=== PATIENT | female | born 1960 | race African-American/Black ===

== ENCOUNTER 2016-11-27 07:58 | Inpatient (IN) | payer MEDICARE, MEDICAID ==
[~2016-11-27] VITALS: Ht 167.6 cm; Wt 86.4 kg
[2016-11-27] MEDS ORDERED: LORA0.5T2 PO (08:05)
[2016-11-27] MEDS ORDERED: MEMA10TA2 PO (08:05)
[2016-11-27] MEDS ORDERED: CLON0.1T PO (08:05)
[2016-11-27] MEDS ORDERED: HYDR-4133 PO (08:05)
[2016-11-27] MEDS ORDERED: ATOR10TA69 PO (08:05)
[2016-11-27 08:49] LABS: BASOPHILS % 0.2 % (0.0-2.0); EOSINOPHILS % 1.3 % (0.0-5.0); HEMATOCRIT. 37.3 % (36.0-48.0); LYMPHOCYTES % 7.7 % (20.0-50.0); MEAN CORPUSCULAR HEMOGLOBIN 31.9 pg (28.0-32.0); MEAN CORPUSCULAR VOLUME 99.2 fL (81.0-99.0); MEAN PLATELET VOLUME 8.7 fl (7.4-10.4); MONOCYTES % 5.5 % (2.0-8.0); NEUTROPHILS % 85.3 % (40.0-76.0); PLATELET 267 x1000/uL (130-400); RED BLOOD CELL COUNT 3.76 mill/uL (4.2-5.4); RED CELL DISTRIBUTION WIDTH 13.9 % (11.6-14.6)
[2016-11-27] MEDS ORDERED: VANCOMYCIN 1 G PREMIX 200 ML IV ONE (09:00)
[2016-11-27] MEDS ORDERED: PIPERACILLIN/TAZ 3.375G PREMIX 50 ML IV ONE (09:00)
[2016-11-27 09:06] LABS: CARBON DIOXIDE 28 mEq/L (21-32); CHLORIDE 96 mEq/L (98-107); TROPONIN I 0.04 ng/mL (0.00-0.04)
[2016-11-27 10:00] LABS: GLUCOSE URINE NEGATIVE (NEGATIVE); KETONES URINE TRACE (NEGATIVE); LEUKOCYTE ESTERASE URINE 3+ (NEGATIVE); NITRITE URINE POSITIVE (NEGATIVE); OCCULT BLOOD URINE 3+ (NEGATIVE); PH URINE 7.5 (4.5-8.0); PROTEIN URINE 3+ (NEGATIVE)
[2016-11-27 10:01] LABS: CLARITY URINE TURBID (CLEAR); COLOR URINE BROWN (YELLOW)
[2016-11-27 12:30] VITALS: BP 180/67
[2016-11-27 12:40] VITALS: BP 180/67
[2016-11-27] MEDS ORDERED: ACETAMINOPHEN 325MG TABLET PO PRN (13:15)
[2016-11-27] MEDS ORDERED: ONDANSETRON HCL 4MG/2ML VIAL IV PRN (13:15)
[2016-11-27] MEDS ORDERED: ENOXAPARIN 40MG/0.4ML SYR SUBCUT SCH (14:00)
[2016-11-27] MEDS ORDERED: DEXTROSE 50% WATER 50ML SYRINGE IV PRN (15:45)
[2016-11-27] MEDS: PIPERACILLIN/TAZ 2.25G PREMIX 50 ML IV SCH ×2 (15:47→21:44)
[2016-11-27 16:00] VITALS: BP 199/86
[2016-11-27] MEDS ORDERED: VANCOMYCIN 1 G PREMIX 200 ML IV SCH (16:00)
[2016-11-27] MEDS ORDERED: VANCOMYCIN 750 MG PREMIX 150 ML IV SCH (16:00)
[2016-11-27] MEDS ORDERED: DEXTROSE 5% WATER 1,000 ML IV SCH (17:15)
[2016-11-27] MEDS: INSULIN LISPRO 100 UNITS/ML SUBCUT SCH ×2 (17:44→21:00)
[2016-11-27] MEDS: BLOOD SUGAR DIAGNOSTIC STRIP TEST SCH ×2 (17:44→21:46)
[2016-11-27] MEDS: HYDRALAZINE HCL 50MG TABLET GT SCH (18:08)
[2016-11-27 19:19] LABS: CLARITY URINE TURBID (CLEAR); COLOR URINE ORANGE (YELLOW); GLUCOSE URINE NEGATIVE (NEGATIVE); KETONES URINE NEGATIVE (NEGATIVE); LEUKOCYTE ESTERASE URINE 3+ (NEGATIVE); NITRITE URINE NEGATIVE (NEGATIVE); OCCULT BLOOD URINE NEGATIVE (NEGATIVE); PH URINE 8.5 (4.5-8.0); PROTEIN URINE 2+ (NEGATIVE); SPECIFIC GRAVITY URINE 1.019 (1.005-1.030); UROBILINOGEN URINE 0.2 E.U./dL (0.2-1.0)
[2016-11-27 20:00] VITALS: BP 179/79
[2016-11-27] MEDS: HYDRALAZINE 20MG/ML VIAL IV PRN (20:03)
[2016-11-28] VITALS (8 sets, daily range): BP systolic 114–174; BP diastolic 59–73
[2016-11-28] MEDS: HYDRALAZINE HCL 50MG TABLET GT SCH ×4 (00:13→17:32)
[2016-11-28] MEDS: PIPERACILLIN/TAZ 2.25G PREMIX 50 ML IV SCH ×3 (05:20→21:12)
[2016-11-28] MEDS: BLOOD SUGAR DIAGNOSTIC STRIP TEST SCH ×4 (05:24→21:15)
[2016-11-28 06:54] LABS: BASOPHILS % 0.4 % (0.0-2.0); EOSINOPHILS % 5.6 % (0.0-5.0); HEMATOCRIT. 35.1 % (36.0-48.0); HEMOGLOBIN. 11.5 g/dL (12.0-16.0); MEAN CORPUSCULAR HEMOGLOBIN 32.4 pg (28.0-32.0); MEAN CORPUSCULAR VOLUME 98.8 fL (81.0-99.0); MEAN PLATELET VOLUME 9.6 fl (7.4-10.4); MONOCYTES % 6.8 % (2.0-8.0); NEUTROPHILS % 76.2 % (40.0-76.0); PLATELET 240 x1000/uL (130-400); RED BLOOD CELL COUNT 3.56 mill/uL (4.2-5.4); RED CELL DISTRIBUTION WIDTH 14.1 % (11.6-14.6)
[2016-11-28] MEDS: INSULIN LISPRO 100 UNITS/ML SUBCUT SCH ×4 (08:10→21:00)
[2016-11-28 08:33] LABS: CARBON DIOXIDE 29 mEq/L (21-32); CHLORIDE 94 mEq/L (98-107); HDL CHOLESTEROL 60 mg/dL (40-59); LDL CHOLESTEROL 33 mg/dL (5-100)
[2016-11-28 10:11] LABS: T4 FREE 1.33 ng/dL (0.76-1.46)
[2016-11-28] MEDS: ENOXAPARIN 40MG/0.4ML SYR SUBCUT SCH (10:28)
[2016-11-28 10:46] LABS: FOLIC ACID (FOLATE) SERUM > 20.00 ng/mL (>5.38); VITAMIN B12 SERUM > 2000.0 pg/mL (211-911)
[2016-11-28 10:50] LABS: AMMONIA 21 uMol/L (<32)
[2016-11-28] MEDS: HYDRALAZINE 20MG/ML VIAL IV PRN ×2 (13:06→17:19)
[2016-11-29] VITALS (8 sets, daily range): BP systolic 135–187; BP diastolic 47–73
[2016-11-29] MEDS: HYDRALAZINE HCL 50MG TABLET GT SCH ×4 (01:03→17:29)
[2016-11-29] MEDS: PIPERACILLIN/TAZ 2.25G PREMIX 50 ML IV SCH ×2 (06:00→13:33)
[2016-11-29] MEDS: BLOOD SUGAR DIAGNOSTIC STRIP TEST SCH ×4 (06:04→21:00)
[2016-11-29 08:04] LABS: BASOPHILS % 0.4 % (0.0-2.0); EOSINOPHILS % 5.5 % (0.0-5.0); HEMATOCRIT. 32.3 % (36.0-48.0); HEMOGLOBIN. 10.5 g/dL (12.0-16.0); LYMPHOCYTES % 13.6 % (20.0-50.0); MEAN CORPUSCULAR HEMOGLOBIN 32.4 pg (28.0-32.0); MEAN CORPUSCULAR VOLUME 99.9 fL (81.0-99.0); MEAN PLATELET VOLUME 9.3 fl (7.4-10.4); MONOCYTES % 11.1 % (2.0-8.0); NEUTROPHILS % 69.4 % (40.0-76.0); PLATELET 185 x1000/uL (130-400); RED BLOOD CELL COUNT 3.24 mill/uL (4.2-5.4); RED CELL DISTRIBUTION WIDTH 14.3 % (11.6-14.6)
[2016-11-29] MEDS: INSULIN LISPRO 100 UNITS/ML SUBCUT SCH ×4 (08:09→21:00)
[2016-11-29] MEDS: ENOXAPARIN 40MG/0.4ML SYR SUBCUT SCH (08:33)
[2016-11-29] MEDS ORDERED: POTASSIUM CHLORIDE 20MEQ TABLET SR PO SCH (10:15)
[2016-11-29] MEDS ORDERED: POTASSIUM CHLORIDE 20MEQ/PACKET PO NR (11:15)
[2016-11-29] MEDS: HYDRALAZINE 20MG/ML VIAL IV PRN (17:29)
[2016-11-29] MEDS: CEFTAZIDIME PENTAHYDRATE 1 G in DEXTROSE 5% WATER 50 ML IV SCH (17:45)
[2016-11-30] VITALS: BP 186/63
[2016-11-30] MEDS: HYDRALAZINE HCL 50MG TABLET GT SCH ×4 (00:52→17:33)
[2016-11-30 04:00] VITALS: BP 140/56
[2016-11-30] MEDS: BLOOD SUGAR DIAGNOSTIC STRIP TEST SCH ×4 (06:22→20:32)
[2016-11-30] MEDS: INSULIN LISPRO 100 UNITS/ML SUBCUT SCH ×4 (06:26→20:32)
[2016-11-30 06:45] LABS: BASOPHILS % 0.5 % (0.0-2.0); EOSINOPHILS % 6.1 % (0.0-5.0); HEMATOCRIT. 32.2 % (36.0-48.0); HEMOGLOBIN. 10.4 g/dL (12.0-16.0); LYMPHOCYTES % 15.9 % (20.0-50.0); MEAN CORPUSCULAR HEMOGLOBIN 32.4 pg (28.0-32.0); MEAN CORPUSCULAR VOLUME 100.5 fL (81.0-99.0); MEAN PLATELET VOLUME 9.5 fl (7.4-10.4); MONOCYTES % 10.8 % (2.0-8.0); NEUTROPHILS % 66.7 % (40.0-76.0); PLATELET 185 x1000/uL (130-400); RED BLOOD CELL COUNT 3.21 mill/uL (4.2-5.4); RED CELL DISTRIBUTION WIDTH 14.2 % (11.6-14.6)
[2016-11-30 08:00] VITALS: BP 174/64
[2016-11-30] MEDS: ENOXAPARIN 40MG/0.4ML SYR SUBCUT SCH (09:36)
[2016-11-30 12:00] VITALS: BP 135/75
[2016-11-30] MEDS: CEFTAZIDIME PENTAHYDRATE 1 G in DEXTROSE 5% WATER 50 ML IV SCH (15:36)
[2016-11-30 16:00] VITALS: BP 182/71
[2016-11-30 20:00] VITALS: BP 197/78
[2016-12-01] VITALS (8 sets, daily range): BP systolic 155–200; BP diastolic 77–88
[2016-12-01] MEDS: HYDRALAZINE HCL 50MG TABLET GT SCH ×5 (00:06→23:57)
[2016-12-01] MEDS: HYDRALAZINE 20MG/ML VIAL IV PRN ×3 (00:10→17:52)
[2016-12-01] MEDS: BLOOD SUGAR DIAGNOSTIC STRIP TEST SCH ×4 (06:42→21:00)
[2016-12-01] MEDS: MORPHINE SULFATE 2 MG/ML CPJ (NOT FOR IM USE) IV PRN (06:58)
[2016-12-01 07:37] LABS: BASOPHILS % 0.6 % (0.0-2.0); EOSINOPHILS % 6.5 % (0.0-5.0); HEMATOCRIT. 36.5 % (36.0-48.0); HEMOGLOBIN. 11.9 g/dL (12.0-16.0); MEAN CORPUSCULAR HEMOGLOBIN 32.5 pg (28.0-32.0); MEAN CORPUSCULAR VOLUME 100.2 fL (81.0-99.0); MEAN PLATELET VOLUME 10.3 fl (7.4-10.4); MONOCYTES % 9.8 % (2.0-8.0); NEUTROPHILS % 69.1 % (40.0-76.0); PLATELET 221 x1000/uL (130-400); RED BLOOD CELL COUNT 3.65 mill/uL (4.2-5.4); RED CELL DISTRIBUTION WIDTH 14.2 % (11.6-14.6)
[2016-12-01] MEDS: INSULIN LISPRO 100 UNITS/ML SUBCUT SCH ×4 (08:10→21:00)
[2016-12-01] MEDS: ENOXAPARIN 40MG/0.4ML SYR SUBCUT SCH (08:41)
[2016-12-01] MEDS ORDERED: POTASSIUM CHLORIDE 20MEQ TABLET SR PO NR (10:30)
[2016-12-01] MEDS ORDERED: POTASSIUM CHLORIDE 20MEQ/PACKET PO SCH (13:15)
[2016-12-01] MEDS: HYDRALAZINE HCL 25MG TABLET PO SCH ×2 (13:20→21:13)
[2016-12-01] MEDS: CEFTAZIDIME PENTAHYDRATE 1 G in DEXTROSE 5% WATER 50 ML IV SCH (17:52)
[2016-12-02 00:21] VITALS: BP 144/66
[2016-12-02 04:00] VITALS: BP 141/70
[2016-12-02] MEDS: HYDRALAZINE HCL 25MG TABLET PO SCH ×3 (05:35→21:36)
[2016-12-02] MEDS: HYDRALAZINE HCL 50MG TABLET GT SCH ×3 (05:35→18:32)
[2016-12-02 07:36] LABS: BASOPHILS % 0.7 % (0.0-2.0); EOSINOPHILS % 9.1 % (0.0-5.0); HEMATOCRIT. 36.3 % (36.0-48.0); HEMOGLOBIN. 11.6 g/dL (12.0-16.0); LYMPHOCYTES % 22.4 % (20.0-50.0); MEAN CORPUSCULAR VOLUME 100.3 fL (81.0-99.0); MEAN PLATELET VOLUME 10.2 fl (7.4-10.4); MONOCYTES % 11.4 % (2.0-8.0); NEUTROPHILS % 56.4 % (40.0-76.0); PLATELET 217 x1000/uL (130-400); RED BLOOD CELL COUNT 3.61 mill/uL (4.2-5.4); RED CELL DISTRIBUTION WIDTH 14.1 % (11.6-14.6)
[2016-12-02] MEDS: BLOOD SUGAR DIAGNOSTIC STRIP TEST SCH ×4 (07:40→21:00)
[2016-12-02 08:00] VITALS: BP 157/63
[2016-12-02] MEDS: INSULIN LISPRO 100 UNITS/ML SUBCUT SCH ×4 (08:10→21:00)
[2016-12-02] MEDS: ENOXAPARIN 40MG/0.4ML SYR SUBCUT SCH (08:58)
[2016-12-02] MEDS: MORPHINE SULFATE 2 MG/ML CPJ (NOT FOR IM USE) IV PRN (09:37)
[2016-12-02 12:00] VITALS: BP 180/79
[2016-12-02] MEDS: METOPROLOL TARTRATE 25MG TABLET PO SCH ×2 (12:53→21:36)
[2016-12-02] MEDS ORDERED: ENOXAPARIN 30MG/0.3ML SYR SUBCUT SCH (14:59)
[2016-12-02] MEDS: CEFTAZIDIME PENTAHYDRATE 1 G in DEXTROSE 5% WATER 50 ML IV SCH (15:14)
[2016-12-02 16:00] VITALS: BP 175/75
[2016-12-02 20:24] VITALS: BP 199/79
[2016-12-03] VITALS (7 sets, daily range): BP systolic 103–201; BP diastolic 45–77
[2016-12-03] MEDS: HYDRALAZINE HCL 50MG TABLET GT SCH ×4 (00:09→17:08)
[2016-12-03] MEDS: BLOOD SUGAR DIAGNOSTIC STRIP TEST SCH ×3 (07:40→17:07)
[2016-12-03] MEDS: INSULIN LISPRO 100 UNITS/ML SUBCUT SCH ×2 (08:10→13:10)
[2016-12-03] MEDS ORDERED: ENOXAPARIN 30MG/0.3ML SYR SUBCUT SCH (09:00)
[2016-12-03] MEDS ORDERED: MORPHINE SULFATE 4 MG/ML CPJ (NOT FOR IM USE) IV PRN (09:30)
[2016-12-03] MEDS: METOPROLOL TARTRATE 25MG TABLET PO SCH (09:39)
[2016-12-03 10:05] LABS: EOSINOPHILS % 9.7 % (0.0-5.0); HEMATOCRIT. 34.8 % (36.0-48.0); HEMOGLOBIN. 11.1 g/dL (12.0-16.0); LYMPHOCYTES % 23.1 % (20.0-50.0); MEAN CORPUSCULAR HEMOGLOBIN 31.8 pg (28.0-32.0); MEAN CORPUSCULAR VOLUME 99.2 fL (81.0-99.0); MEAN PLATELET VOLUME 9.8 fl (7.4-10.4); MONOCYTES % 9.5 % (2.0-8.0); NEUTROPHILS % 56.7 % (40.0-76.0); PLATELET 207 x1000/uL (130-400); RED BLOOD CELL COUNT 3.51 mill/uL (4.2-5.4); RED CELL DISTRIBUTION WIDTH 13.9 % (11.6-14.6)
[2016-12-03] MEDS ORDERED: CLONIDINE 0.1MG TABLET PO PRN (11:30)
[2016-12-03] MEDS ORDERED: AMLODIPINE 2.5MG TABLET NG SCH (11:30)
[2016-12-03] MEDS ORDERED: CLONIDINE 0.2MG TABLET PO SCH (11:30)
[2016-12-03] MEDS ORDERED: AMIKACIN SULFATE 400 MG in SODIUM CHLORIDE 0.9% 100 ML IV SCH (18:00)
== END 2016-12-03 18:30 | DRG 91 ==
LOC: ER 08:16 → 7WST 10:22 → ENRESERV 11:44
PROVIDERS: ADMIT Internal Medicine Nephrology; ATTEND Internal Medicine Nephrology
PROC: 5A1D60Z (ICD-10-PCS; principal; 2016-11-27)
DX: G92 Toxic encephalopathy (principal); N18.6 End stage renal disease; I47.2 Ventricular tachycardia; I12.0 Hypertensive chronic kidney disease with stage 5 chronic kidney disease or end stage renal disease; F03.90 Unspecified dementia, unspecified severity, without behavioral disturbance, psychotic disturbance, mood disturbance, and anxiety; E11.22 Type 2 diabetes mellitus with diabetic chronic kidney disease; N39.0 Urinary tract infection, site not specified; I69.354 Hemiplegia and hemiparesis following cerebral infarction affecting left non-dominant side; R13.10 Dysphagia, unspecified; K21.9 Gastro-esophageal reflux disease without esophagitis; E78.5 Hyperlipidemia, unspecified; E78.00 Pure hypercholesterolemia, unspecified; E66.9 Obesity, unspecified; B96.20 Unspecified Escherichia coli [E. coli] as the cause of diseases classified elsewhere; D64.9 Anemia, unspecified; F41.9 Anxiety disorder, unspecified; Z88.8 Allergy status to other drugs, medicaments and biological substances; Z99.2 Dependence on renal dialysis; Z93.1 Gastrostomy status; Z89.512 Acquired absence of left leg below knee; Z79.899 Other long term (current) drug therapy; Z68.30 Body mass index [BMI] 30.0-30.9, adult; T50.905A Adverse effect of unspecified drugs, medicaments and biological substances, initial encounter; Y92.89 Other specified places as the place of occurrence of the external cause
CPT/HCPCS: 36415; 70450; 70551; 71010; 74000; 74176; 80048; 80053; 80061; 80202; 81001; 82140; 82607; 82746; 82962; 83036; 83605; 83690; 84132; 84439; 84443; 84481; 84484; 85025; 87040; 87077; 87086; 87186; 92610; 93005; 93306; 93880; 93970; 96365; 96375; 97163; 97167; 99285; A6261; C1893; J0278; J0360; J0713; J1650; J1815; J2270; J2543; J3370; J7030; J7050; J7060

== ENCOUNTER 2017-09-23 18:54 | Inpatient (IN) | payer MEDICARE, MEDICAID ==
[~2017-09-23] VITALS: Ht 154.9 cm; Wt 97.5 kg
[~2017-09-23 18:54] MED LIST: ATOR10TA69 PO; CLON0.1T PO; HYDR-4133 PO; LORA0.5T2 PO; MEMA10TA2 PO
[2017-09-23] MEDS ORDERED: ACETAMINOPHEN 650MG SUPP PR STA (21:01)
[2017-09-23] MEDS ORDERED: SODIUM CHLORIDE 0.9% 1,000 ML IV ONE (21:01)
[2017-09-23] MEDS ORDERED: VANCOMYCIN 1 G PREMIX 200 ML IV ONE (21:15)
[2017-09-23] MEDS ORDERED: PIPERACILLIN/TAZ 3.375G PREMIX 50 ML IV ONE (21:15)
[2017-09-23 21:42] LABS: HEMATOCRIT. 32.2 % (36.0-48.0); HEMOGLOBIN. 10.3 g/dL (12.0-16.0); MEAN CORPUSCULAR HEMOGLOBIN 32.3 pg (28.0-32.0); MEAN CORPUSCULAR VOLUME 100.8 fL (81.0-99.0); MEAN PLATELET VOLUME 8.7 fl (7.4-10.4); PLATELET 344 x1000/uL (130-400); RED CELL DISTRIBUTION WIDTH 15.9 % (11.6-14.6)
[2017-09-23 21:49] LABS: CHLORIDE 102 mEq/L (98-107)
[2017-09-23 21:53] LABS: PROTHROMBIN TIME 10.6 sec (9.4-11.6)
[2017-09-23 21:58] LABS: AMMONIA 22 uMol/L (<32); CREATINE KINASE 88 IU/L (26-192)
[2017-09-23 22:04] LABS: ATYPICAL LYMPHOCYTES 2; PLATELET ESTIMATE NORMAL
[2017-09-23 23:01] LABS: CLARITY URINE TURBID (CLEAR); COLOR URINE ORANGE (YELLOW); KETONES URINE TRACE (NEGATIVE); LEUKOCYTE ESTERASE URINE 3+ (NEGATIVE); NITRITE URINE NEGATIVE (NEGATIVE); OCCULT BLOOD URINE 2+ (NEGATIVE); PROTEIN URINE 4+ (NEGATIVE); SPECIFIC GRAVITY URINE 1.018 (1.005-1.030); UROBILINOGEN URINE 0.2 E.U./dL (0.2-1.0)
[2017-09-23] MEDS ORDERED: DOCUSATE SODIUM 100MG CAPSULE PO PRN (23:15)
[2017-09-23] MEDS ORDERED: CLONIDINE 0.1MG TABLET PO PRN (23:15)
[2017-09-23] MEDS ORDERED: ONDANSETRON HCL 4MG/2ML VIAL IV PRN (23:15)
[2017-09-23] MEDS ORDERED: ACETAMINOPHEN 650MG/20.3ML UDC GT PRN (23:15)
[2017-09-24] VITALS (12 sets, daily range): BP systolic 105–167; BP diastolic 51–82
[2017-09-24] MEDS ORDERED: DEXTROSE 50% WATER 50ML SYRINGE IV PRN (01:45)
[2017-09-24] MEDS: DEXT 5%/0.45% NACL 1000ML 1,000 ML IV SCH (02:36)
[2017-09-24] MEDS: BLOOD SUGAR DIAGNOSTIC STRIP TEST SCH ×4 (06:15→21:45)
[2017-09-24] MEDS: INSULIN LISPRO 100 UNITS/ML SUBCUT SCH ×4 (06:16→21:00)
[2017-09-24] MEDS: PIPERACILLIN/TAZOBACTAM 2.25 G in DEXTROSE 5% WATER 50 ML IV SCH ×2 (06:17→22:02)
[2017-09-24 06:27] LABS: HEMATOCRIT. 27.6 % (36.0-48.0); HEMOGLOBIN. 8.4 g/dL (12.0-16.0); MEAN CORPUSCULAR VOLUME 108.3 fL (81.0-99.0); MEAN PLATELET VOLUME 9.6 fl (7.4-10.4); PLATELET 256 x1000/uL (130-400); RED BLOOD CELL COUNT 2.55 mill/uL (4.2-5.4); RED CELL DISTRIBUTION WIDTH 16.9 % (11.6-14.6)
[2017-09-24 07:02] LABS: PHOSPHORUS 2.9 mg/dL (2.5-4.9)
[2017-09-24 09:05] LABS: HEMATOCRIT 32.2 % (36.0-48.0); HEMOGLOBIN 10.2 g/dL (12.0-16.0)
[2017-09-24] MEDS: HYDRALAZINE HCL 10MG TABLET PO SCH ×2 (09:29→22:11)
[2017-09-24] MEDS: MEMANTINE HCL 10MG TABLET PO SCH (09:29)
[2017-09-24 09:31] LABS: T4 FREE 0.86 ng/dL (0.76-1.46)
[2017-09-24 09:40] LABS: BG BASE EXCESS -4.8 mmol/L (-2.0-2.0); BG CARBOXYHEMOGLOBIN 1.4 % (0.5-1.5); BG DEOXYHEMOGLOBIN 0.7 % (0.0-5.0); BG HCO3 ACT 21.1 mmol/L (22.0-26.0); BG METHEMOGLOBIN 0.3 % (0.0-1.5); BG OXYGEN SATURATION 99.3 % (92.0-98.5); BG OXYHEMOGLOBIN 97.6 % (94.0-97.0); BG PCO2 42.1 mmHg (35.0-45.0); BG PH 7.317 (7.350-7.450); BG PO2 167.5 mmHg (75.0-100.0); BG SAMPLE SITE RIGHT RADIAL; BG TOTAL HEMOGLOBIN 10.7 g/dL (12.0-18.0); BG VENT MODE NASAL CANNULA
[2017-09-24 10:06] LABS: VITAMIN B12 SERUM 703 pg/mL (211-911)
[2017-09-24 10:08] LABS: FOLIC ACID (FOLATE) SERUM > 20.00 ng/mL (>5.38)
[2017-09-24] MEDS: OMEPRAZOLE 20MG CAPSULE EXTENDED RELEASE PO SCH (11:00)
[2017-09-24] MEDS ORDERED: LIDOCAINE HCL/PF 1% 2ML VIAL ONE (11:55)
[2017-09-24 12:08] LABS: PLATELET ESTIMATE NORMAL
[2017-09-24] MEDS ORDERED: VANCOMYCIN 1500MG in DEXTROSE 5% WATER 250ML IV NR (12:30)
[2017-09-24] MEDS: IPRATROPIUM/ALBUTEROL 0.5-3(2.5)MG/3ML NEB INH SCH (12:50)
[2017-09-24 19:20] LABS: AMMONIA 19 uMol/L (<32)
[2017-09-24] MEDS: ATORVASTATIN CALCIUM 10MG TABLET PO SCH (22:02)
[2017-09-25] VITALS (12 sets, daily range): BP systolic 105–183; BP diastolic 60–79
[2017-09-25] MEDS: IPRATROPIUM/ALBUTEROL 0.5-3(2.5)MG/3ML NEB INH SCH ×4 (01:39→20:34)
[2017-09-25] MEDS ORDERED: PIPERACILLIN/TAZOBACTAM 2.25 G in DEXTROSE 5% WATER 50 ML IV SCH (02:00)
[2017-09-25] MEDS: DEXT 5%/0.45% NACL 1000ML 1,000 ML IV SCH (02:20)
[2017-09-25 05:46] LABS: BASOPHILS % 0.4 % (0.0-2.0); EOSINOPHILS % 9.7 % (0.0-5.0); HEMATOCRIT. 29.2 % (36.0-48.0); HEMOGLOBIN. 9.4 g/dL (12.0-16.0); LYMPHOCYTES % 14.3 % (20.0-50.0); MEAN CORPUSCULAR HEMOGLOBIN 33.1 pg (28.0-32.0); MEAN CORPUSCULAR VOLUME 103.3 fL (81.0-99.0); MEAN PLATELET VOLUME 9.4 fl (7.4-10.4); MONOCYTES % 10.4 % (2.0-8.0); NEUTROPHILS % 65.2 % (40.0-76.0); PLATELET 256 x1000/uL (130-400); RED BLOOD CELL COUNT 2.83 mill/uL (4.2-5.4); RED CELL DISTRIBUTION WIDTH 16.3 % (11.6-14.6)
[2017-09-25] MEDS: BLOOD SUGAR DIAGNOSTIC STRIP TEST SCH ×4 (06:32→21:46)
[2017-09-25] MEDS: INSULIN LISPRO 100 UNITS/ML SUBCUT SCH ×4 (06:32→21:00)
[2017-09-25] MEDS: OMEPRAZOLE 20MG CAPSULE EXTENDED RELEASE PO SCH (06:37)
[2017-09-25] MEDS: MEMANTINE HCL 10MG TABLET PO SCH (08:58)
[2017-09-25] MEDS: HYDRALAZINE HCL 10MG TABLET PO SCH ×2 (08:59→22:18)
[2017-09-25] MEDS: PIPERACILLIN/TAZ 2.25G PREMIX 50 ML IV SCH (10:01)
[2017-09-25] MEDS ORDERED: MORPHINE SULFATE 4 MG/ML CPJ (NOT FOR IM USE) IV SCH (14:30)
[2017-09-25] MEDS ORDERED: MORPHINE SULFATE 10 MG/ML CPJ IM SCH (15:30)
[2017-09-25] MEDS: FOLIC ACID/VITAMIN B COMP W-C TABLET PO SCH (16:08)
[2017-09-25] MEDS: ZINC SULFATE 220 MG ( 50 ) CAPSULE PO SCH (16:08)
[2017-09-25] MEDS: ASCORBIC ACID 250 MG TABLET PO SCH (17:16)
[2017-09-25] MEDS: ATORVASTATIN CALCIUM 10MG TABLET PO SCH (22:17)
[2017-09-26] VITALS (11 sets, daily range): BP systolic 93–155; BP diastolic 53–81
[2017-09-26] MEDS: PIPERACILLIN/TAZ 2.25G PREMIX 50 ML IV SCH ×3 (02:00→17:35)
[2017-09-26] MEDS: IPRATROPIUM/ALBUTEROL 0.5-3(2.5)MG/3ML NEB INH SCH ×4 (02:13→21:45)
[2017-09-26 06:10] LABS: HEMATOCRIT. 32.1 % (36.0-48.0); HEMOGLOBIN. 10.3 g/dL (12.0-16.0); MEAN CORPUSCULAR HEMOGLOBIN 32.9 pg (28.0-32.0); MEAN CORPUSCULAR VOLUME 102.4 fL (81.0-99.0); MEAN PLATELET VOLUME 9.3 fl (7.4-10.4); PLATELET 305 x1000/uL (130-400); RED BLOOD CELL COUNT 3.13 mill/uL (4.2-5.4); RED CELL DISTRIBUTION WIDTH 16.1 % (11.6-14.6)
[2017-09-26] MEDS: BLOOD SUGAR DIAGNOSTIC STRIP TEST SCH ×4 (06:56→21:54)
[2017-09-26] MEDS: INSULIN LISPRO 100 UNITS/ML SUBCUT SCH ×4 (07:20→21:00)
[2017-09-26] MEDS: OMEPRAZOLE 20MG CAPSULE EXTENDED RELEASE PO SCH (07:32)
[2017-09-26] MEDS: HYDRALAZINE HCL 10MG TABLET PO SCH ×2 (09:00→21:58)
[2017-09-26] MEDS: FOLIC ACID/VITAMIN B COMP W-C TABLET PO SCH (10:18)
[2017-09-26] MEDS: MEMANTINE HCL 10MG TABLET PO SCH (10:18)
[2017-09-26] MEDS: ZINC SULFATE 220 MG ( 50 ) CAPSULE PO SCH (10:18)
[2017-09-26] MEDS: ASCORBIC ACID 250 MG TABLET PO SCH ×2 (10:18→17:35)
[2017-09-26 10:19] LABS: PLATELET ESTIMATE NORMAL
[2017-09-26] MEDS ORDERED: LIDOCAINE HCL/PF 1% 10 MG/ML 5ML VIAL ONE (12:49)
[2017-09-26] MEDS ORDERED: VANCOMYCIN 1,750 MG in DEXT 5% WATER 500 ML IV NR (15:00)
[2017-09-26] MEDS: MORPHINE SULFATE 4 MG/ML CPJ (NOT FOR IM USE) IV PRN ×2 (15:51→22:02)
[2017-09-26] MEDS: ATORVASTATIN CALCIUM 10MG TABLET PO SCH (21:58)
[2017-09-27] VITALS (12 sets, daily range): BP systolic 99–162; BP diastolic 50–92
[2017-09-27] MEDS: IPRATROPIUM/ALBUTEROL 0.5-3(2.5)MG/3ML NEB INH SCH ×3 (01:54→14:00)
[2017-09-27] MEDS: PIPERACILLIN/TAZ 2.25G PREMIX 50 ML IV SCH ×2 (02:36→09:27)
[2017-09-27] MEDS: MORPHINE SULFATE 4 MG/ML CPJ (NOT FOR IM USE) IV PRN ×3 (05:25→20:47)
[2017-09-27] MEDS: OMEPRAZOLE 20MG CAPSULE EXTENDED RELEASE PO SCH (05:58)
[2017-09-27] MEDS: BLOOD SUGAR DIAGNOSTIC STRIP TEST SCH ×3 (06:28→16:50)
[2017-09-27] MEDS: INSULIN LISPRO 100 UNITS/ML SUBCUT SCH ×3 (07:20→17:20)
[2017-09-27 07:23] LABS: BASOPHILS % 0.5 % (0.0-2.0); EOSINOPHILS % 10.2 % (0.0-5.0); HEMATOCRIT. 29.1 % (36.0-48.0); HEMOGLOBIN. 9.5 g/dL (12.0-16.0); LYMPHOCYTES % 15.3 % (20.0-50.0); MEAN CORPUSCULAR HEMOGLOBIN 32.8 pg (28.0-32.0); MEAN CORPUSCULAR VOLUME 100.9 fL (81.0-99.0); MEAN PLATELET VOLUME 9.4 fl (7.4-10.4); PLATELET 328 x1000/uL (130-400); RED BLOOD CELL COUNT 2.89 mill/uL (4.2-5.4); RED CELL DISTRIBUTION WIDTH 15.7 % (11.6-14.6)
[2017-09-27] MEDS: HYDRALAZINE HCL 10MG TABLET PO SCH (09:00)
[2017-09-27] MEDS: MEMANTINE HCL 10MG TABLET PO SCH (09:27)
[2017-09-27] MEDS: FOLIC ACID/VITAMIN B COMP W-C TABLET PO SCH (09:27)
[2017-09-27] MEDS: ZINC SULFATE 220 MG ( 50 ) CAPSULE PO SCH (09:27)
[2017-09-27] MEDS: ASCORBIC ACID 250 MG TABLET PO SCH ×2 (09:27→18:17)
[2017-09-27] MEDS ORDERED: FLUCONAZOLE 100MG TABLET PO SCH (14:15)
[2017-09-27] MEDS ORDERED: SULFAMETHOXAZOLE/TRIMETHOPRIM 400/80MG TAB PO SCH (16:00)
[2017-09-28] MEDS ORDERED: FAMOTIDINE 20MG TABLET PO SCH (09:00)
== END 2017-09-27 21:09 | DRG 853 ==
LOC: ER 19:05 → 3WST 23:23 → EDBEDREQ 23:39 → ENRESERV 23:42
PROVIDERS: ADMIT Internal Medicine Nephrology; ATTEND Internal Medicine Nephrology
PROC: 4A00X4Z Measurement of Central Nervous Electrical Activity, External Approach (ICD-10-PCS; 2017-09-23)
PROC: 5A1D70Z Performance of Urinary Filtration, Intermittent, Less than 6 Hours Per Day (ICD-10-PCS; 2017-09-24)
PROC: 0KBP0ZZ Excision of Left Hip Muscle, Open Approach (ICD-10-PCS; principal; 2017-09-26)
PROC: 0KBN0ZZ Excision of Right Hip Muscle, Open Approach (ICD-10-PCS; 2017-09-26)
PROC: 05HA33Z Insertion of Infusion Device into Left Brachial Vein, Percutaneous Approach (ICD-10-PCS; 2017-09-26)
PROC: B54NZZA Ultrasonography of Left Upper Extremity Veins, Guidance (ICD-10-PCS; 2017-09-26)
PROC: 5A1D70Z Performance of Urinary Filtration, Intermittent, Less than 6 Hours Per Day (ICD-10-PCS; 2017-09-26)
DX: A41.9 Sepsis, unspecified organism (principal); L89.154 Pressure ulcer of sacral region, stage 4; N18.6 End stage renal disease; G92 Toxic encephalopathy; N39.0 Urinary tract infection, site not specified; I13.11 Hypertensive heart and chronic kidney disease without heart failure, with stage 5 chronic kidney disease, or end stage renal disease; E46 Unspecified protein-calorie malnutrition; I69.354 Hemiplegia and hemiparesis following cerebral infarction affecting left non-dominant side; D63.8 Anemia in other chronic diseases classified elsewhere; F03.90 Unspecified dementia, unspecified severity, without behavioral disturbance, psychotic disturbance, mood disturbance, and anxiety; E11.22 Type 2 diabetes mellitus with diabetic chronic kidney disease; E11.51 Type 2 diabetes mellitus with diabetic peripheral angiopathy without gangrene; E78.00 Pure hypercholesterolemia, unspecified; E78.5 Hyperlipidemia, unspecified; Z87.891 Personal history of nicotine dependence; Z89.512 Acquired absence of left leg below knee; Z79.899 Other long term (current) drug therapy; Z99.2 Dependence on renal dialysis; Z88.8 Allergy status to other drugs, medicaments and biological substances
CPT/HCPCS: 36415; 36569; 36600; 70450; 70551; 71045; 76937; 80048; 80053; 80061; 80076; 80202; 81003; 82140; 82375; 82550; 82607; 82728; 82746; 82805; 82962; 83036; 83540; 83550; 83605; 83735; 83880; 84100; 84439; 84443; 84481; 84484; 85014; 85018; 85025; 85044; 85610; 87040; 87077; 87086; 87106; 87186; 93005; 93306; 93880; 94640; 96365; 96367; 99291; A6261; C1725; C1893; J2270; J2543; J3370; J3490; J7030; J7050; J7060; J7620

== ENCOUNTER 2017-09-29 09:46 | Inpatient (IN) | payer MEDICARE, MEDICAID ==
[~2017-09-29] VITALS: Ht 157.5 cm; Wt 82.6 kg
[2017-09-29 11:08] LABS: BASOPHILS % 0.7 % (0.0-2.0); EOSINOPHILS % 12.3 % (0.0-5.0); HEMATOCRIT. 32.2 % (36.0-48.0); HEMOGLOBIN. 10.4 g/dL (12.0-16.0); LYMPHOCYTES % 15.1 % (20.0-50.0); MEAN CORPUSCULAR HEMOGLOBIN 32.7 pg (28.0-32.0); MEAN CORPUSCULAR VOLUME 101.5 fL (81.0-99.0); MEAN PLATELET VOLUME 9.4 fl (7.4-10.4); NEUTROPHILS % 62.9 % (40.0-76.0); PLATELET 364 x1000/uL (130-400); RED BLOOD CELL COUNT 3.17 mill/uL (4.2-5.4); RED CELL DISTRIBUTION WIDTH 15.6 % (11.6-14.6)
[2017-09-29 11:14] LABS: CHLORIDE 101 mEq/L (98-107)
[2017-09-29 12:01] LABS: CLARITY URINE TURBID (CLEAR); COLOR URINE ORANGE (YELLOW); KETONES URINE NEGATIVE (NEGATIVE); LEUKOCYTE ESTERASE URINE 3+ (NEGATIVE); NITRITE URINE NEGATIVE (NEGATIVE); OCCULT BLOOD URINE 3+ (NEGATIVE); PROTEIN URINE 3+ (NEGATIVE); SPECIFIC GRAVITY URINE 1.019 (1.005-1.030); UROBILINOGEN URINE 0.2 E.U./dL (0.2-1.0)
[2017-09-29] MEDS ORDERED: LEVOFLOXACIN 500MG PREMIX 100 ML IV NR (15:45)
[2017-09-29] MEDS ORDERED: MEROPENEM 500 MG in SODIUM CHLORIDE 0.9% 50 ML IV ONE (17:00)
[2017-09-29] MEDS ORDERED: ACETAMINOPHEN 325MG TABLET PO PRN (17:15)
[2017-09-29] MEDS ORDERED: ONDANSETRON HCL 4MG/2ML VIAL IV PRN (17:15)
[2017-09-29] MEDS ORDERED: DOCUSATE SODIUM 100MG CAPSULE PO PRN (17:15)
[2017-09-29] MEDS ORDERED: CLONIDINE 0.1MG TABLET PO PRN (17:15)
[2017-09-29] MEDS ORDERED: AMIKACIN SULFATE 450 MG in SODIUM CHLORIDE 0.9% 100 ML IV SCH (17:45)
[2017-09-30] MEDS ORDERED: DEXTROSE 50% WATER 50ML SYRINGE IV PRN (02:15)
[2017-09-30 02:57] VITALS: BP 158/53
[2017-09-30 03:00] VITALS: BP 158/53
[2017-09-30] MEDS ORDERED: FOLI0.8T23 PO (03:30)
[2017-09-30] MEDS ORDERED: HYDR-4133 PO (03:32)
[2017-09-30] MEDS ORDERED: ASCO100T12 PO (03:44)
[2017-09-30] MEDS ORDERED: DOCU-138 PO (03:44)
[2017-09-30] MEDS ORDERED: ATOR10TA69 PO (03:44)
[2017-09-30] MEDS ORDERED: ZINC220T PO (03:44)
[2017-09-30] MEDS ORDERED: FAMO20TA8 PO (03:44)
[2017-09-30] MEDS ORDERED: FLUC100T42 PO (03:44)
[2017-09-30] MEDS ORDERED: OMEP20CA10 PO (03:44)
[2017-09-30] MEDS ORDERED: SULF1TAB47 PO (03:44)
[2017-09-30] MEDS: BLOOD SUGAR DIAGNOSTIC STRIP TEST SCH ×4 (05:56→21:17)
[2017-09-30] MEDS: OMEPRAZOLE 20MG CAPSULE EXTENDED RELEASE PO SCH (07:40)
[2017-09-30 08:00] VITALS: BP 124/59
[2017-09-30] MEDS: INSULIN LISPRO 100 UNITS/ML SUBCUT SCH ×4 (08:10→21:00)
[2017-09-30] MEDS: FLUCONAZOLE 100MG TABLET PO SCH (08:49)
[2017-09-30] MEDS: ASCORBIC ACID 250 MG TABLET PO SCH ×2 (08:50→16:54)
[2017-09-30] MEDS: MEMANTINE HCL 10MG TABLET PO SCH (08:50)
[2017-09-30] MEDS: DOCUSATE SODIUM 100MG CAPSULE PO SCH ×2 (08:51→16:56)
[2017-09-30] MEDS: SULFAMETHOXAZOLE/TRIMETHOPRIM 400/80MG TAB PO SCH (08:51)
[2017-09-30] MEDS: ZINC SULFATE 220 MG ( 50 ) CAPSULE PO SCH (08:51)
[2017-09-30] MEDS: FOLIC ACID/VITAMIN B COMP W-C TABLET PO SCH (08:51)
[2017-09-30] MEDS: HYDRALAZINE HCL 10MG TABLET PO SCH ×2 (08:52→21:00)
[2017-09-30] MEDS: ENOXAPARIN 30MG/0.3ML SYR SUBCUT SCH (08:52)
[2017-09-30] MEDS: FAMOTIDINE 20MG TABLET PO SCH (08:53)
[2017-09-30] MEDS ORDERED: MEDICATION NOT ON FORMULARY EA (Docusate Sodium (Colace) 100 MG) PO SCH (09:00)
[2017-09-30] MEDS ORDERED: MEDICATION NOT ON FORMULARY EA (Zinc Sulfate 220 MG) PO SCH (09:00)
[2017-09-30] MEDS ORDERED: SULFAMETHOXAZOLE PO SCH (09:00)
[2017-09-30] MEDS ORDERED: MEDICATION NOT ON FORMULARY EA (Hydralazine Hcl 10 MG) PO SCH (09:00)
[2017-09-30] MEDS ORDERED: TRIMETHOPRIM PO SCH (09:00)
[2017-09-30] MEDS ORDERED: MEDICATION NOT ON FORMULARY EA (Ascorbic Acid (Vitamin C) 250 MG) PO SCH (09:00)
[2017-09-30] MEDS ORDERED: MEDICATION NOT ON FORMULARY EA (Famotidine 20 MG) PO SCH (09:00)
[2017-09-30] MEDS ORDERED: [UNRECOGNIZED DRUG - OTHER] PO SCH (09:00)
[2017-09-30 11:02] LABS: AMMONIA 21 uMol/L (<32)
[2017-09-30 12:00] VITALS: BP 107/50
[2017-09-30 13:22] LABS: BASOPHILS % 0.7 % (0.0-2.0); EOSINOPHILS % 6.1 % (0.0-5.0); HEMATOCRIT. 31.1 % (36.0-48.0); LYMPHOCYTES % 13.1 % (20.0-50.0); MEAN CORPUSCULAR HEMOGLOBIN 32.8 pg (28.0-32.0); MEAN CORPUSCULAR VOLUME 101.3 fL (81.0-99.0); MEAN PLATELET VOLUME 9.5 fl (7.4-10.4); MONOCYTES % 6.6 % (2.0-8.0); NEUTROPHILS % 73.5 % (40.0-76.0); PLATELET 325 x1000/uL (130-400); RED BLOOD CELL COUNT 3.07 mill/uL (4.2-5.4); RED CELL DISTRIBUTION WIDTH 15.2 % (11.6-14.6)
[2017-09-30] MEDS: AMLODIPINE 2.5MG TABLET PO SCH ×2 (14:15→21:00)
[2017-09-30 16:00] VITALS: BP 135/33
[2017-09-30 20:00] VITALS: BP 113/53
[2017-09-30] MEDS: ATORVASTATIN CALCIUM 10MG TABLET PO SCH (21:22)
[2017-10-01] VITALS: BP 120/64
[2017-10-01 04:00] VITALS: BP 124/68
[2017-10-01] MEDS: BLOOD SUGAR DIAGNOSTIC STRIP TEST SCH ×4 (05:17→20:41)
[2017-10-01 06:53] LABS: BASOPHILS % 0.6 % (0.0-2.0); EOSINOPHILS % 11.1 % (0.0-5.0); HEMATOCRIT. 31.2 % (36.0-48.0); LYMPHOCYTES % 17.2 % (20.0-50.0); MEAN CORPUSCULAR HEMOGLOBIN 32.5 pg (28.0-32.0); MEAN PLATELET VOLUME 9.5 fl (7.4-10.4); MONOCYTES % 7.8 % (2.0-8.0); NEUTROPHILS % 63.3 % (40.0-76.0); PLATELET 335 x1000/uL (130-400); RED BLOOD CELL COUNT 3.08 mill/uL (4.2-5.4); RED CELL DISTRIBUTION WIDTH 15.4 % (11.6-14.6)
[2017-10-01 07:55] LABS: CREATINE KINASE MB FRACTION 0.7 ng/mL (0.5-3.6)
[2017-10-01 08:07] VITALS: BP 130/36
[2017-10-01] MEDS: INSULIN LISPRO 100 UNITS/ML SUBCUT SCH ×4 (08:10→20:41)
[2017-10-01] MEDS: DOCUSATE SODIUM 100MG CAPSULE PO SCH ×2 (09:00→17:00)
[2017-10-01] MEDS: AMLODIPINE 2.5MG TABLET PO SCH (09:00)
[2017-10-01] MEDS ORDERED: IOHEXOL-350 100 ML BOTTLE ONE (10:34)
[2017-10-01] MEDS: MEMANTINE HCL 10MG TABLET PO SCH (11:36)
[2017-10-01] MEDS: ZINC SULFATE 220 MG ( 50 ) CAPSULE PO SCH (11:36)
[2017-10-01] MEDS: SULFAMETHOXAZOLE/TRIMETHOPRIM 400/80MG TAB PO SCH (11:36)
[2017-10-01] MEDS: FOLIC ACID/VITAMIN B COMP W-C TABLET PO SCH (11:36)
[2017-10-01] MEDS: FAMOTIDINE 20MG TABLET PO SCH (11:36)
[2017-10-01] MEDS: OMEPRAZOLE 20MG CAPSULE EXTENDED RELEASE PO SCH (11:36)
[2017-10-01] MEDS: FLUCONAZOLE 100MG TABLET PO SCH (11:36)
[2017-10-01] MEDS: ASCORBIC ACID 250 MG TABLET PO SCH ×2 (11:36→17:50)
[2017-10-01] MEDS: ENOXAPARIN 30MG/0.3ML SYR SUBCUT SCH (11:37)
[2017-10-01] MEDS: HYDROCODONE/ACETAMINOPHEN 5/325MG TABLET PO PRN (11:42)
[2017-10-01] MEDS: HYDRALAZINE HCL 10MG TABLET PO SCH ×3 (11:43→22:00)
[2017-10-01 12:23] VITALS: BP 158/53
[2017-10-01] MEDS: LOSARTAN POTASSIUM 25 MG TABLET PO SCH ×2 (14:00→20:37)
[2017-10-01 16:16] VITALS: BP 129/67
[2017-10-01 20:00] VITALS: BP 128/59
[2017-10-01] MEDS: ATORVASTATIN CALCIUM 10MG TABLET PO SCH (20:37)
[2017-10-02 00:09] VITALS: BP 138/54
[2017-10-02 04:00] VITALS: BP 126/49
[2017-10-02] MEDS: HYDRALAZINE HCL 10MG TABLET PO SCH ×3 (05:39→20:53)
[2017-10-02] MEDS: OMEPRAZOLE 20MG CAPSULE EXTENDED RELEASE PO SCH (07:29)
[2017-10-02] MEDS: BLOOD SUGAR DIAGNOSTIC STRIP TEST SCH ×4 (07:30→21:00)
[2017-10-02] MEDS: INSULIN LISPRO 100 UNITS/ML SUBCUT SCH ×4 (07:30→21:00)
[2017-10-02 08:00] VITALS: BP 135/60
[2017-10-02] MEDS: FOLIC ACID/VITAMIN B COMP W-C TABLET PO SCH (08:16)
[2017-10-02] MEDS: FLUCONAZOLE 100MG TABLET PO SCH (08:17)
[2017-10-02] MEDS: FAMOTIDINE 20MG TABLET PO SCH (08:17)
[2017-10-02] MEDS: MEMANTINE HCL 10MG TABLET PO SCH (08:17)
[2017-10-02] MEDS: SULFAMETHOXAZOLE/TRIMETHOPRIM 400/80MG TAB PO SCH (08:17)
[2017-10-02] MEDS: ZINC SULFATE 220 MG ( 50 ) CAPSULE PO SCH (08:17)
[2017-10-02] MEDS: ASCORBIC ACID 250 MG TABLET PO SCH ×2 (08:17→17:42)
[2017-10-02] MEDS: LOSARTAN POTASSIUM 25 MG TABLET PO SCH ×2 (08:18→20:53)
[2017-10-02] MEDS: DOCUSATE SODIUM 100MG CAPSULE PO SCH ×2 (08:18→17:00)
[2017-10-02] MEDS: ENOXAPARIN 30MG/0.3ML SYR SUBCUT SCH (08:18)
[2017-10-02 12:00] VITALS: BP 127/36
[2017-10-02 12:48] LABS: BASOPHILS % 0.8 % (0.0-2.0); EOSINOPHILS % 9.6 % (0.0-5.0); HEMATOCRIT. 30.8 % (36.0-48.0); MEAN CORPUSCULAR HEMOGLOBIN 32.7 pg (28.0-32.0); MEAN CORPUSCULAR VOLUME 100.6 fL (81.0-99.0); MEAN PLATELET VOLUME 9.6 fl (7.4-10.4); MONOCYTES % 5.2 % (2.0-8.0); NEUTROPHILS % 68.4 % (40.0-76.0); PLATELET 301 x1000/uL (130-400); RED BLOOD CELL COUNT 3.06 mill/uL (4.2-5.4); RED CELL DISTRIBUTION WIDTH 15.3 % (11.6-14.6)
[2017-10-02 17:20] VITALS: BP 139/48
[2017-10-02 20:27] VITALS: BP 131/42
[2017-10-02] MEDS: HYDROCODONE/ACETAMINOPHEN 5/325MG TABLET PO PRN (20:52)
[2017-10-02] MEDS: ATORVASTATIN CALCIUM 10MG TABLET PO SCH (20:57)
[2017-10-03] VITALS (7 sets, daily range): BP systolic 131–166; BP diastolic 42–71
[2017-10-03] MEDS: OMEPRAZOLE 20MG CAPSULE EXTENDED RELEASE PO SCH ×2 (05:35→09:18)
[2017-10-03] MEDS: BLOOD SUGAR DIAGNOSTIC STRIP TEST SCH ×2 (05:36→12:40)
[2017-10-03] MEDS: HYDRALAZINE HCL 10MG TABLET PO SCH ×2 (05:43→13:38)
[2017-10-03 07:55] LABS: HEMATOCRIT. 31.6 % (36.0-48.0); MEAN CORPUSCULAR HEMOGLOBIN 32.7 pg (28.0-32.0); MEAN CORPUSCULAR VOLUME 103.5 fL (81.0-99.0); RED BLOOD CELL COUNT 3.05 mill/uL (4.2-5.4); RED CELL DISTRIBUTION WIDTH 15.9 % (11.6-14.6)
[2017-10-03] MEDS: INSULIN LISPRO 100 UNITS/ML SUBCUT SCH ×2 (08:10→12:41)
[2017-10-03] MEDS: DOCUSATE SODIUM 100MG CAPSULE PO SCH ×3 (09:00→17:48)
[2017-10-03] MEDS: ZINC SULFATE 220 MG ( 50 ) CAPSULE PO SCH (09:00)
[2017-10-03 09:17] LABS: PLATELET ESTIMATE NORMAL
[2017-10-03 09:18] LABS: PLATELET 205 x1000/uL (130-400)
[2017-10-03] MEDS: FLUCONAZOLE 100MG TABLET PO SCH (09:18)
[2017-10-03] MEDS: MEMANTINE HCL 10MG TABLET PO SCH (09:18)
[2017-10-03] MEDS: FAMOTIDINE 20MG TABLET PO SCH (09:18)
[2017-10-03] MEDS: LOSARTAN POTASSIUM 25 MG TABLET PO SCH (09:18)
[2017-10-03] MEDS: SULFAMETHOXAZOLE/TRIMETHOPRIM 400/80MG TAB PO SCH (09:18)
[2017-10-03] MEDS: ASCORBIC ACID 250 MG TABLET PO SCH ×2 (09:18→17:48)
[2017-10-03] MEDS: ENOXAPARIN 30MG/0.3ML SYR SUBCUT SCH (09:19)
[2017-10-03] MEDS: FOLIC ACID/VITAMIN B COMP W-C TABLET PO SCH (09:33)
[2017-10-03] MEDS: HYDROCODONE/ACETAMINOPHEN 5/325MG TABLET PO PRN (13:37)
== END 2017-10-03 18:36 | DRG 40 ==
LOC: ER 11:53 → 7WST 17:10 → EDBEDREQTM 17:12 → EDBEDREQSVC 17:12 → EDBEDREQ 17:12 → ENRESERV 09-30 01:50
PROVIDERS: ADMIT Internal Medicine Nephrology; ATTEND Internal Medicine Nephrology
PROC: 0KBP0ZZ Excision of Left Hip Muscle, Open Approach (ICD-10-PCS; principal; 2017-09-30)
PROC: 0KBN0ZZ Excision of Right Hip Muscle, Open Approach (ICD-10-PCS; 2017-09-30)
PROC: 5A1D70Z Performance of Urinary Filtration, Intermittent, Less than 6 Hours Per Day (ICD-10-PCS; 2017-09-30)
PROC: 5A1D70Z Performance of Urinary Filtration, Intermittent, Less than 6 Hours Per Day (ICD-10-PCS; 2017-09-30)
DX: G90.8 Other disorders of autonomic nervous system (principal); L89.154 Pressure ulcer of sacral region, stage 4; N18.6 End stage renal disease; N39.0 Urinary tract infection, site not specified; I12.0 Hypertensive chronic kidney disease with stage 5 chronic kidney disease or end stage renal disease; B49 Unspecified mycosis; I69.354 Hemiplegia and hemiparesis following cerebral infarction affecting left non-dominant side; D63.1 Anemia in chronic kidney disease; E11.51 Type 2 diabetes mellitus with diabetic peripheral angiopathy without gangrene; E78.00 Pure hypercholesterolemia, unspecified; E78.5 Hyperlipidemia, unspecified; E11.22 Type 2 diabetes mellitus with diabetic chronic kidney disease; F03.90 Unspecified dementia, unspecified severity, without behavioral disturbance, psychotic disturbance, mood disturbance, and anxiety; E83.52 Hypercalcemia; Z16.12 Extended spectrum beta lactamase (ESBL) resistance; B96.20 Unspecified Escherichia coli [E. coli] as the cause of diseases classified elsewhere; Z89.512 Acquired absence of left leg below knee; Z74.01 Bed confinement status; Z99.2 Dependence on renal dialysis; Z88.8 Allergy status to other drugs, medicaments and biological substances; Z79.899 Other long term (current) drug therapy
CPT/HCPCS: 36415; 70450; 70496; 71045; 80048; 80053; 81003; 82140; 82550; 82553; 82962; 83735; 84443; 84484; 85025; 85379; 87040; 87077; 87086; 87186; 93005; 96365; 96366; 96368; 96375; 97162; 97166; 99285; J0278; J1650; J1956; J2185; J2405; J7030; J7050; Q9967

== ENCOUNTER 2018-10-08 13:21 | Inpatient (IN) | payer MEDICARE, MEDICAID ==
[2018-10-08] VITALS (7 sets, daily range): BP systolic 95–130; BP diastolic 32–76
[~2018-10-08] VITALS: Ht 157.5 cm; Wt 103.9 kg
[~2018-10-08 13:21] MED LIST changes: +ASCO100T12 PO; -CLON0.1T PO; +DOCU-138 PO; +FAMO20TA8 PO; +FLUC100T42 PO; +FOLI0.8T23 PO; -LORA0.5T2 PO; +OMEP20CA5 PO; +SULF1TAB47 PO; +ZINC220T PO
[2018-10-08] MEDS ORDERED: SODIUM CHLORIDE 0.9% 1000ML BAG (SEPSIS BOLUS) IV ONE (13:45)
[2018-10-08] MEDS ORDERED: VANCOMYCIN 1 G PREMIX 200 ML IV ONE (14:00)
[2018-10-08] MEDS ORDERED: PIPERACILLIN/TAZ 3.375G PREMIX 50 ML IV ONE (14:00)
[2018-10-08 14:18] LABS: BASOPHILS % 0.7 % (0.0-2.0); EOSINOPHILS % 8.3 % (0.0-5.0); HEMATOCRIT. 26.8 % (36.0-48.0); HEMOGLOBIN. 8.4 g/dL (12.0-16.0); LYMPHOCYTES % 11.2 % (20.0-50.0); MEAN CORPUSCULAR HEMOGLOBIN 32.1 pg (28.0-32.0); MEAN PLATELET VOLUME 8.9 fl (7.4-10.4); MONOCYTES % 5.4 % (2.0-8.0); NEUTROPHILS % 74.4 % (40.0-76.0); PLATELET 283 x1000/uL (130-400); RED CELL DISTRIBUTION WIDTH 15.4 % (11.6-14.6)
[2018-10-08 14:25] LABS: PROTHROMBIN TIME 10.1 sec (9.6-11.0)
[2018-10-08 14:27] LABS: CHLORIDE 100 mEq/L (98-107)
[2018-10-08] MEDS ORDERED: DOCUSATE SODIUM 100MG CAPSULE PO PRN (15:30)
[2018-10-08] MEDS ORDERED: PIPERACILLIN/TAZ 3.375G PREMIX 50 ML IV SCH (15:30)
[2018-10-08 15:48] LABS: CLARITY URINE TURBID (CLEAR); COLOR URINE ORANGE (YELLOW); KETONES URINE TRACE (NEGATIVE); LEUKOCYTE ESTERASE URINE 3+ (NEGATIVE); NITRITE URINE NEGATIVE (NEGATIVE); OCCULT BLOOD URINE 3+ (NEGATIVE); PH URINE 6.5 (4.5-8.0); PROTEIN URINE 4+ (NEGATIVE); SPECIFIC GRAVITY URINE 1.018 (1.005-1.030); UROBILINOGEN URINE 0.2 E.U./dL (0.2-1.0)
[2018-10-08] MEDS ORDERED: NOREPINEPHRINE 4MG/250ML PMX 250 ML IV ONE (18:15)
[2018-10-08] MEDS ORDERED: DEXTROSE 50% WATER 50ML SYRINGE IV PRN (22:45)
[2018-10-08] MEDS: DEXT 5%/0.45% NACL 1000ML 1,000 ML IV SCH (22:59)
[2018-10-08 23:37] LABS: HEMATOCRIT 25.2 % (36.0-48.0); HEMOGLOBIN 7.7 g/dL (12.0-16.0)
[2018-10-09] VITALS (90 sets, daily range): BP systolic 48–186; BP diastolic 31–144
[2018-10-09] MEDS ORDERED: GABA-531 PO (00:52)
[2018-10-09] MEDS ORDERED: CLON0.1T PO (00:52)
[2018-10-09] MEDS ORDERED: INSLIS SUBCUT (00:52)
[2018-10-09] MEDS ORDERED: HYDR-4133 PO (00:52)
[2018-10-09] MEDS ORDERED: APIX2.5T PO (00:52)
[2018-10-09] MEDS ORDERED: ASPI-1158 PO (00:52)
[2018-10-09] MEDS ORDERED: ATOR10TA69 MT (00:52)
[2018-10-09] MEDS ORDERED: MEMA10TA2 PO (01:01)
[2018-10-09] MEDS ORDERED: HYDR-4001 PO (01:01)
[2018-10-09] MEDS ORDERED: MIDO5TAB PO (01:01)
[2018-10-09] MEDS ORDERED: HYDR-4009 PO (01:01)
[2018-10-09] MEDS ORDERED: MELA10TA2 PO (01:01)
[2018-10-09] MEDS ORDERED: NORT50CA PO (01:01)
[2018-10-09] MEDS ORDERED: LOSA25TA26 PO (01:01)
[2018-10-09] MEDS ORDERED: ASCO-339 PO (01:04)
[2018-10-09] MEDS ORDERED: REN800 PO (01:04)
[2018-10-09] MEDS ORDERED: FOLI0.8T23 MT (01:04)
[2018-10-09] MEDS: PIPERACILLIN/TAZ 2.25G PREMIX 50 ML IV SCH ×2 (04:03→17:21)
[2018-10-09 05:36] LABS: CHLORIDE 103 mEq/L (98-107)
[2018-10-09 05:41] LABS: BASOPHILS % 0.5 % (0.0-2.0); EOSINOPHILS % 3.3 % (0.0-5.0); HEMATOCRIT. 24.9 % (36.0-48.0); HEMOGLOBIN. 7.8 g/dL (12.0-16.0); LYMPHOCYTES % 10.1 % (20.0-50.0); MEAN CORPUSCULAR HEMOGLOBIN 32.5 pg (28.0-32.0); MEAN CORPUSCULAR VOLUME 103.9 fL (81.0-99.0); MEAN PLATELET VOLUME 9.6 fl (7.4-10.4); MONOCYTES % 9.4 % (2.0-8.0); NEUTROPHILS % 76.7 % (40.0-76.0); PLATELET 243 x1000/uL (130-400)
[2018-10-09 05:46] LABS: LDL CHOLESTEROL 37 mg/dL (5-100)
[2018-10-09 05:48] LABS: HDL CHOLESTEROL 44 mg/dL (40-59)
[2018-10-09] MEDS: INSULIN LISPRO 100 UNITS/ML SUBCUT SCH ×4 (07:00→21:35)
[2018-10-09] MEDS: BLOOD SUGAR DIAGNOSTIC STRIP TEST SCH ×4 (07:03→21:35)
[2018-10-09] MEDS ORDERED: VANCOMYCIN 1 G PREMIX 200 ML IV SCH (10:00)
[2018-10-09] MEDS: HYDROMORPHONE HCL/PF 2MG/ML CPJ IV PRN ×3 (10:11→21:34)
[2018-10-09] MEDS ORDERED: NOREPINEPHRINE 4 MG in DEXT 5% WATER 246 ML IV PRN (17:00)
[2018-10-09] MEDS: DEXT 5%/0.45% NACL 1000ML 1,000 ML IV SCH ×2 (17:22→23:03)
[2018-10-09 21:09] LABS: HEMATOCRIT 22.4 % (36.0-48.0); HEMOGLOBIN 7.1 g/dL (12.0-16.0)
[2018-10-09] MEDS: EPOETIN ALFA 10000UNITS/ML VIAL SUBCUT SCH (21:34)
[2018-10-10] VITALS (92 sets, daily range): BP systolic 88–170; BP diastolic 48–92
[2018-10-10 05:46] LABS: HEMATOCRIT. 22.2 % (36.0-48.0); MEAN CORPUSCULAR HEMOGLOBIN 32.4 pg (28.0-32.0); MEAN CORPUSCULAR VOLUME 105.9 fL (81.0-99.0); RED CELL DISTRIBUTION WIDTH 15.3 % (11.6-14.6)
[2018-10-10 05:50] LABS: CHLORIDE 108 mEq/L (98-107)
[2018-10-10 05:54] LABS: HEMOGLOBIN. 6.8 g/dL (12.0-16.0)
[2018-10-10] MEDS: BLOOD SUGAR DIAGNOSTIC STRIP TEST SCH ×4 (06:45→20:25)
[2018-10-10] MEDS: PIPERACILLIN/TAZ 2.25G PREMIX 50 ML IV SCH (06:48)
[2018-10-10] MEDS: INSULIN LISPRO 100 UNITS/ML SUBCUT SCH ×4 (07:00→20:25)
[2018-10-10 10:08] LABS: PLATELET 168 x1000/uL (130-400)
[2018-10-10 10:12] LABS: PLATELET ESTIMATE NORMAL
[2018-10-10] MEDS: MEROPENEM 500 MG in SODIUM CHLORIDE 0.9% 50 ML IV SCH (10:48)
[2018-10-10] MEDS: HYDROMORPHONE HCL/PF 2MG/ML CPJ IV PRN ×3 (10:50→23:21)
[2018-10-10] MEDS ORDERED: LIDOCAINE HCL 1% 20ML VIAL (Pyxis) INJ ONE (11:56)
[2018-10-10] MEDS ORDERED: BACITRACIN 15GM TUBE TOP ONE (11:56)
[2018-10-10] MEDS ORDERED: HEPARIN SODIUM 1,000 UNIT/1ML VIAL IV ONE (11:57)
[2018-10-10] MEDS ORDERED: BUPIVACAINE HCL/PF 0.5% (5MG/ML) 10ML ONE (11:57)
[2018-10-10] MEDS ORDERED: BACITRACIN 50,000 UNITS/VIAL ONE (11:57)
[2018-10-10] MEDS ORDERED: THROMBIN (BOVINE) 5000 UNITS/VIAL TOP ONE (11:57)
[2018-10-10] MEDS: VANCOMYCIN HCL 1000 MG/20 ML ORAL PO SCH ×2 (18:37→23:21)
[2018-10-10] MEDS: DEXT 5%/0.45% NACL 1000ML 1,000 ML IV SCH (19:00)
[2018-10-10 23:40] LABS: HEMATOCRIT 29.6 % (36.0-48.0); HEMOGLOBIN 9.7 g/dL (12.0-16.0)
[2018-10-11] VITALS (97 sets, daily range): BP systolic 90–163; BP diastolic 55–89
[2018-10-11] MEDS: HYDROMORPHONE HCL/PF 2MG/ML CPJ IV PRN ×4 (04:10→23:39)
[2018-10-11 05:15] LABS: EOSINOPHILS % 11.2 % (0.0-5.0); HEMOGLOBIN. 9.1 g/dL (12.0-16.0); MEAN CORPUSCULAR HEMOGLOBIN 30.6 pg (28.0-32.0); MEAN CORPUSCULAR VOLUME 94.6 fL (81.0-99.0); MEAN PLATELET VOLUME 8.9 fl (7.4-10.4); MONOCYTES % 11.6 % (2.0-8.0); NEUTROPHILS % 65.2 % (40.0-76.0); PLATELET 197 x1000/uL (130-400); RED BLOOD CELL COUNT 2.96 mill/uL (4.2-5.4); RED CELL DISTRIBUTION WIDTH 21.4 % (11.6-14.6)
[2018-10-11] MEDS: INSULIN LISPRO 100 UNITS/ML SUBCUT SCH ×4 (06:50→20:23)
[2018-10-11] MEDS: BLOOD SUGAR DIAGNOSTIC STRIP TEST SCH ×4 (06:50→20:23)
[2018-10-11] MEDS: VANCOMYCIN HCL 1000 MG/20 ML ORAL PO SCH ×4 (06:53→23:36)
[2018-10-11] MEDS: MEROPENEM 500 MG in SODIUM CHLORIDE 0.9% 50 ML IV SCH (11:38)
[2018-10-11] MEDS ORDERED: VANCOMYCIN 1 G PREMIX 200 ML IV SCH (18:00)
[2018-10-11] MEDS: DEXT 5%/0.45% NACL 1000ML 1,000 ML IV SCH (20:23)
[2018-10-11] MEDS: EPOETIN ALFA 10000UNITS/ML VIAL SUBCUT SCH (20:23)
[2018-10-12] VITALS (18 sets, daily range): BP systolic 103–185; BP diastolic 59–83
[2018-10-12] MEDS: HYDROMORPHONE HCL/PF 2MG/ML CPJ IV PRN ×5 (05:00→22:14)
[2018-10-12] MEDS: VANCOMYCIN HCL 1000 MG/20 ML ORAL PO SCH ×3 (06:44→17:56)
[2018-10-12] MEDS: BLOOD SUGAR DIAGNOSTIC STRIP TEST SCH ×4 (07:30→21:00)
[2018-10-12] MEDS: INSULIN LISPRO 100 UNITS/ML SUBCUT SCH ×4 (08:00→21:00)
[2018-10-12] MEDS: MEROPENEM 500 MG in SODIUM CHLORIDE 0.9% 50 ML IV SCH (10:30)
[2018-10-12 11:29] LABS: BASOPHILS % 0.9 % (0.0-2.0); EOSINOPHILS % 7.3 % (0.0-5.0); HEMATOCRIT. 28.2 % (36.0-48.0); HEMOGLOBIN. 8.8 g/dL (12.0-16.0); LYMPHOCYTES % 9.5 % (20.0-50.0); MEAN CORPUSCULAR HEMOGLOBIN 30.2 pg (28.0-32.0); MEAN CORPUSCULAR VOLUME 96.7 fL (81.0-99.0); MONOCYTES % 9.9 % (2.0-8.0); NEUTROPHILS % 72.4 % (40.0-76.0); PLATELET 223 x1000/uL (130-400); RED BLOOD CELL COUNT 2.91 mill/uL (4.2-5.4); RED CELL DISTRIBUTION WIDTH 21.1 % (11.6-14.6)
[2018-10-12] MEDS: DEXT 5%/0.45% NACL 1000ML 1,000 ML IV SCH (17:56)
[2018-10-12] MEDS ORDERED: CLONIDINE 0.2MG TABLET PO PRN (18:30)
[2018-10-12] MEDS: HYDRALAZINE HCL 50MG TABLET PO SCH ×2 (18:38→22:13)
[2018-10-13] VITALS (14 sets, daily range): BP systolic 99–151; BP diastolic 54–73
[2018-10-13] MEDS: VANCOMYCIN HCL 1000 MG/20 ML ORAL PO SCH ×4 (00:14→18:26)
[2018-10-13] MEDS: HYDRALAZINE HCL 50MG TABLET PO SCH ×3 (05:28→22:00)
[2018-10-13] MEDS: BLOOD SUGAR DIAGNOSTIC STRIP TEST SCH ×4 (07:30→21:47)
[2018-10-13] MEDS: INSULIN LISPRO 100 UNITS/ML SUBCUT SCH ×4 (08:00→21:00)
[2018-10-13] MEDS: MEROPENEM 500 MG in SODIUM CHLORIDE 0.9% 50 ML IV SCH (10:53)
[2018-10-13] MEDS: DEXT 5%/0.45% NACL 1000ML 1,000 ML IV SCH (15:24)
[2018-10-13] MEDS: ACETAMINOPHEN 325MG TABLET PO PRN (17:28)
[2018-10-13] MEDS ORDERED: VANCOMYCIN 1 G PREMIX 200 ML IV SCH (21:00)
[2018-10-14] VITALS (19 sets, daily range): BP systolic 109–168; BP diastolic 62–87
[2018-10-14] MEDS: HYDROMORPHONE HCL/PF 2MG/ML CPJ IV PRN ×4 (00:04→21:47)
[2018-10-14] MEDS: ACETAMINOPHEN 325MG TABLET PO PRN (02:56)
[2018-10-14] MEDS: VANCOMYCIN HCL 1000 MG/20 ML ORAL PO SCH ×5 (05:36→23:14)
[2018-10-14] MEDS: HYDRALAZINE HCL 50MG TABLET PO SCH ×3 (05:38→21:46)
[2018-10-14] MEDS: BLOOD SUGAR DIAGNOSTIC STRIP TEST SCH ×4 (07:30→21:38)
[2018-10-14] MEDS: INSULIN LISPRO 100 UNITS/ML SUBCUT SCH ×4 (08:00→21:00)
[2018-10-14] MEDS: MEROPENEM 500 MG in SODIUM CHLORIDE 0.9% 50 ML IV SCH (12:32)
[2018-10-14] MEDS: DEXT 5%/0.45% NACL 1000ML 1,000 ML IV SCH (18:57)
[2018-10-14] MEDS: ONDANSETRON HCL 4MG/2ML INJ IV PRN (21:46)
[2018-10-14] MEDS: EPOETIN ALFA 10000UNITS/ML VIAL SUBCUT SCH (21:46)
[2018-10-15] VITALS (11 sets, daily range): BP systolic 119–155; BP diastolic 68–74
[2018-10-15] MEDS: HYDRALAZINE HCL 50MG TABLET PO SCH ×3 (05:18→22:00)
[2018-10-15] MEDS: VANCOMYCIN HCL 1000 MG/20 ML ORAL PO SCH ×3 (05:22→18:29)
[2018-10-15] MEDS: HYDROMORPHONE HCL/PF 2MG/ML CPJ IV PRN ×3 (05:23→21:27)
[2018-10-15] MEDS: ONDANSETRON HCL 4MG/2ML INJ IV PRN (05:28)
[2018-10-15] MEDS: INSULIN LISPRO 100 UNITS/ML SUBCUT SCH ×4 (08:00→21:00)
[2018-10-15] MEDS: BLOOD SUGAR DIAGNOSTIC STRIP TEST SCH ×4 (08:27→21:00)
[2018-10-15] MEDS ORDERED: LIDOCAINE HCL 2% JELLY 5ML ONE (09:41)
[2018-10-15] MEDS ORDERED: TETRACAINE/BENZOCAINE/BUTAMBEN 20 GM SPRAY MM ONE (09:41)
[2018-10-15] MEDS ORDERED: MIDAZOLAM HCL 2 MG/2 ML VIAL ONE (10:05)
[2018-10-15] MEDS ORDERED: FENTANYL CITRATE/PF 50MCG/ML 2ML VIAL ONE (10:06)
[2018-10-15] MEDS: MEROPENEM 500 MG in SODIUM CHLORIDE 0.9% 50 ML IV SCH (11:00)
[2018-10-15] MEDS: ACETAMINOPHEN 325MG TABLET PO PRN (12:20)
[2018-10-15] MEDS: DEXT 5%/0.45% NACL 1000ML 1,000 ML IV SCH (15:00)
[2018-10-15] MEDS ORDERED: VANCOMYCIN 1 G PREMIX 200 ML IV NR (17:00)
== END 2018-10-15 23:51 | DRG 314 ==
LOC: ER 13:29 → MICUSO 15:28 → EDBEDREQ 15:31 → EDBEDREQSVC 15:31 → EDBEDREQTM 15:31 → ENRESERV 19:50 → 5EST 10-12 02:25
PROVIDERS: ADMIT Internal Medicine Nephrology; ATTEND Internal Medicine Nephrology
PROC: 05PYX3Z Removal of Infusion Device from Upper Vein, External Approach (ICD-10-PCS; 2018-10-09)
PROC: 05HY33Z Insertion of Infusion Device into Upper Vein, Percutaneous Approach (ICD-10-PCS; 2018-10-09)
PROC: 5A1D70Z Performance of Urinary Filtration, Intermittent, Less than 6 Hours Per Day (ICD-10-PCS; 2018-10-09)
PROC: 30233N1 Transfusion of Nonautologous Red Blood Cells into Peripheral Vein, Percutaneous Approach (ICD-10-PCS; 2018-10-10)
PROC: 5A1D70Z Performance of Urinary Filtration, Intermittent, Less than 6 Hours Per Day (ICD-10-PCS; 2018-10-11)
PROC: 5A1D70Z Performance of Urinary Filtration, Intermittent, Less than 6 Hours Per Day (ICD-10-PCS; 2018-10-13)
PROC: B24BZZ4 Ultrasonography of Heart with Aorta, Transesophageal (ICD-10-PCS; principal; 2018-10-15)
PROC: 5A1D70Z Performance of Urinary Filtration, Intermittent, Less than 6 Hours Per Day (ICD-10-PCS; 2018-10-15)
DX: T82.838A Hemorrhage due to vascular prosthetic devices, implants and grafts, initial encounter (principal); N18.6 End stage renal disease; E43 Unspecified severe protein-calorie malnutrition; A41.02 Sepsis due to Methicillin resistant Staphylococcus aureus; N39.0 Urinary tract infection, site not specified; I42.1 Obstructive hypertrophic cardiomyopathy; A04.72 Enterocolitis due to Clostridium difficile, not specified as recurrent; I12.0 Hypertensive chronic kidney disease with stage 5 chronic kidney disease or end stage renal disease; Z68.41 Body mass index [BMI] 40.0-44.9, adult; T82.7XXA Infection and inflammatory reaction due to other cardiac and vascular devices, implants and grafts, initial encounter; I95.9 Hypotension, unspecified; D63.1 Anemia in chronic kidney disease; E87.5 Hyperkalemia; L89.159 Pressure ulcer of sacral region, unspecified stage; B96.20 Unspecified Escherichia coli [E. coli] as the cause of diseases classified elsewhere; B96.89 Other specified bacterial agents as the cause of diseases classified elsewhere; E11.22 Type 2 diabetes mellitus with diabetic chronic kidney disease; Y84.1 Kidney dialysis as the cause of abnormal reaction of the patient, or of later complication, without mention of misadventure at the time of the procedure; E11.51 Type 2 diabetes mellitus with diabetic peripheral angiopathy without gangrene; E78.5 Hyperlipidemia, unspecified; F03.90 Unspecified dementia, unspecified severity, without behavioral disturbance, psychotic disturbance, mood disturbance, and anxiety; Z86.73 Personal history of transient ischemic attack (TIA), and cerebral infarction without residual deficits; Z89.511 Acquired absence of right leg below knee; Z89.512 Acquired absence of left leg below knee; Z99.2 Dependence on renal dialysis; Z88.1 Allergy status to other antibiotic agents; Z88.8 Allergy status to other drugs, medicaments and biological substances; Z79.01 Long term (current) use of anticoagulants; Z79.82 Long term (current) use of aspirin; Z79.4 Long term (current) use of insulin; Z79.899 Other long term (current) drug therapy
CPT/HCPCS: 36415; 36556; 71045; 74176; 76937; 80048; 80061; 80202; 82962; 83605; 83735; 84145; 84484; 85014; 85018; 85379; 86850; 86900; 86920; 87077; 87186; 87493; 93005; 93306; 93312; 93970; 96365; 96368; 99291; A6261; C1752; C1769; C1893; J0885; J1170; J1644; J1815; J2185; J2250; J2405; J2543; J3010; J3370; J3490; J7030; J7040; J7050; J7060; P9016; A4315